=== PATIENT | female | born 2000 | race Caucasian/White ===

== ENCOUNTER 2022-06-02 15:47 | Emergency (ER) | payer SELFPAY ==
[~2022-06-02] VITALS: Ht 157.5 cm; Wt 89.0 kg
[2022-06-02 15:54] VITALS: BP 147/96
== END 2022-06-02 23:35 | disposition left against medical advice (07) ==
LOC: ER 15:47
DX: Z53.21 Procedure and treatment not carried out due to patient leaving prior to being seen by health care provider (principal)